=== PATIENT | female | born 1965 | race Caucasian/White ===

== ENCOUNTER 2021-03-01 19:11 | Emergency (ER) | payer SELFPAY ==
[~2021-03-01] VITALS: Ht 160 cm; Wt 81.8 kg
[2021-03-01 19:19] VITALS: Ht 160 cm; Wt 81.8 kg
[2021-03-01] MEDS ORDERED: BUPROPION XL300 MG PO (19:20)
[2021-03-01] MEDS ORDERED: ARTHROTEC 501 TAB.EC PO (20:02)
[2021-03-01 21:47] VITALS: BP 142/82
== END 2021-03-01 20:30 | disposition home or self-care (01) ==
LOC: D.ER 19:11
DX: S63.501A Unspecified sprain of right wrist, initial encounter (principal); W19.XXXA Unspecified fall, initial encounter; Y93.9 Activity, unspecified; Y92.9 Unspecified place or not applicable